=== PATIENT | female | born 1960 | race Caucasian/White ===

== ENCOUNTER → 2017-01-28 | Outpatient (CLI) | payer OTHER | LOC: FIMAGING 10:26 | PROVIDERS: ATTEND Midwife | DX: M81.0 Age-related osteoporosis without current pathological fracture (principal) ==

== ENCOUNTER → 2017-02-08 | Outpatient (CLI) | payer OTHER | LOC: BMCIMAGING 14:55 | PROVIDERS: ATTEND Obstetrics & Gynecology | DX: Z12.31 Encounter for screening mammogram for malignant neoplasm of breast (principal) | CPT/HCPCS: G0202 ==

== ENCOUNTER → 2018-02-09 | Outpatient (CLI) | payer OTHER | LOC: BMCIMAGING 08:35 | PROVIDERS: ATTEND Obstetrics & Gynecology | DX: Z12.31 Encounter for screening mammogram for malignant neoplasm of breast (principal); Z80.3 Family history of malignant neoplasm of breast ==